=== PATIENT | male | born 1960 | race Caucasian/White ===

== ENCOUNTER 2020-02-01 21:11 | Emergency (ER) | payer BC ==
[2020-02-01] MEDS ORDERED: LORazepam 1 MG Tab PO ONE (21:55)
--- NOTE | 2020-02-01 21:57 | EDM.PDOC ---
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 Also admits he has been under a lot of stress as of late does have follow-up appointment with cardiology this week - Related Data Allergies Allergy/AdvReac Type Severity Reaction Status Date / Time No Known Allergies Allergy Verified 02/01/20 21:31 Home Meds: Home Meds Famotidine 40 mg PO DAILY 02/01/20 [History] Warfarin [Coumadin] 1 tab PO ASDIRECTED 02/01/20 [History] Warfarin [Coumadin] 10 mg PO ASDIRECTED 02/01/20 [History] atenoloL [Tenormin] 50 mg PO DAILY 02/01/20 [History] Past Medical History HEENT History: Reports: Allergic Rhinitis, Impaired Vision, Sinusitis Cardiovascular History: Reports: Arrhythmia, Heart Murmur, High Cholesterol, Hypertension Gastrointestinal History: Reports: GERD, Irritable Bowel Syndrome Genitourinary History: Reports: Prostate Disorder, Renal Calculus Psychiatric History: Reports: Anxiety, Panic Attack Hematologic History: Reports: Anticoagulation Therapy - Infectious Disease History Infectious Disease History: Reports: Chicken Pox, Shingles - Past Surgical History Cardiovascular Surgical History: Reports: Aneurysm, Valve Replacement Other Cardiovascular Surgeries/Procedures: aortic aneurysm Social & Family History - Tobacco Use Tobacco Use Status *Q: Never Tobacco User - Recreational Drug Use Recreational Drug Use: No ED ROS GENERAL - Review of Systems Review Of Systems: See Below Constitutional: Reports: No Symptoms HEENT: Reports: No Symptoms Respiratory: Reports: No Symptoms Cardiovascular: Reports: Palpitations GI/Abdominal: Reports: No Symptoms : Reports: No Symptoms ED EXAM, GENERAL - Physical Exam Exam: See Below Exam Limited By: No Limitations General Appearance: Alert, WD/WN, No Apparent Distress Respiratory/Chest: No Respiratory Distress, Lungs Clear, Normal Breath Sounds, No Accessory Muscle Use, Chest Non-Tender Cardiovascular: Regular Rate, Rhythm, Systolic Murmur (With mechanical click) Course - Vital Signs Last Recorded V/S: Last Vital Signs Temp 96.7 F L 02/01/20 21:36 Pulse 55 L 02/01/20 22:46 Resp 13 02/01/20 22:46 BP 173/79 H 02/01/20 22:46 Pulse Ox 100 02/01/20 22:46 - Orders/Labs/Meds Orders: Active Orders 24 hr Category Date Time Status Cardiac Monitoring [RC] .As Directed Care 02/01/20 21:54 Active EKG Documentation Completion [RC] ASDIRECTED Care 02/01/20 21:55 Active EKG 12 Lead [EK] Stat Ther 02/01/20 21:55 Ordered Labs: Laboratory Tests 02/01/20 02/01/20 02/01/20 Range/Units 21:54 22:09 22:09 WBC 10.0 (4.5-11.0) K/uL RBC 4.73 (4.30-5.90) M/uL Hgb 13.5 (12.0-15.0) g/dL Hct 42.4 (40.0-54.0) % MCV 90 (80-98) fL MCH 29 (27-31) pg MCHC 32 (32-36) % Plt Count 177 (150-400) K/uL Neut % (Auto) 80 H (36-66) % Lymph % (Auto) 9 L (24-44) % Spink % (Auto) 7 H (2-6) % Eos % (Auto) 4 (2-4) % Baso % (Auto) 0 (0-1) % PT 27.1 H (9.5-12.0) sec INR 2.53 H (0.80-1.20) Sodium 138 L (140-148) mmol/L Potassium 4.1 (3.6-5.2) mmol/L Chloride 103 (100-108) mmol/L Carbon Dioxide 27 (21-32) mmol/L Anion Gap 12.1 (5.0-14.0) mmol/L BUN 14 (7-18) mg/dL Creatinine 0.9 (0.8-1.3) mg/dL Est Cr Clr Drug Dosing 97.00 mL/min Estimated GFR (MDRD) > 60 (>60) Glucose 137 H (74-106) mg/dL Calcium 9.6 (8.5-10.1) mg/dL Troponin I < 0.017 (0.000-0.056) ng/mL Meds: Medications Discontinued Medications Generic Name Dose Route Start Last Admin Trade Name Alejandra PRN Reason Stop Dose Admin Lorazepam 1 mg 02/01/20 21:55 02/01/20 22:03 Ativan PO 02/01/20 21:56 1 mg ONETIME ONE Administration Departure - Departure Time of Disposition: 22:53 Disposition: Home, Self-Care 01 Condition: Fair Clinical Impression: Palpitations Instructions: Palpitations, [id number] Referrals: PCP,None [Primary Care Provider] - Forms: ED Department Discharge Additional Instructions: Use the Ativan as needed for symptomatic relief, keep your follow-up appointment with your primary care provider this week, call or return to the emergency department worsening of symptoms Sepsis Event Note (ED) - Evaluation Sepsis Screening Result: No Definite Risk - Focused Exam Vital Signs: Vital Signs Temp Pulse Resp BP Pulse Ox 02/01/20 22:46 55 L 13 173/79 H 100 02/01/20 22:04 56 L 10 L 188/76 H 99 02/01/20 21:36 96.7 F L 61 11 L 194/65 H 100 - My Orders Last 24 Hours: My Active Orders 02/01/20 21:54 Cardiac Monitoring [RC] .As Directed 02/01/20 21:55 EKG Documentation Completion [RC] ASDIRECTED EKG 12 Lead [EK] Stat - Assessment/Plan Last 24 Hours: My Active Orders 02/01/20 21:54 Cardiac Monitoring [RC] .As Directed 02/01/20 21:55 EKG Documentation Completion [RC] ASDIRECTED EKG 12 Lead [EK] Stat Plan: Assessment Acuity = acute Site and laterality = palpitations Etiology = unknown suspicious for underlying anxiety Manifestations = none Location of injury = Home Lab values = CBC, BMP, troponin all within normal limits EKG demonstrates sinus rhythm no ST elevations or depressions Plan . Some improvement with the Ativan provided in the emergency department prescription written for Ativan 1 mg p.o. 3 times daily as needed total #10 he has a follow-up appointment with his primary care provider on of this week This note was dictated using [employer] voice recognition software please call with any questions on syntax or grammar.
== END 2020-02-01 23:05 | disposition home or self-care (01) ==
LOC: JP.ED 21:11 → EDBD 21:11 → JP.ED 23:05
DX: R00.2 Palpitations (principal); I10 Essential (primary) hypertension; K21.9 Gastro-esophageal reflux disease without esophagitis; Z79.899 Other long term (current) drug therapy
CPT/HCPCS: 36415; 80048; 84484; 85025; 85610; 93005; 99285; A9270; 93010

== ENCOUNTER 2021-12-18 20:26 | Emergency (ER) | payer BC | END 2021-12-18 22:11 | disposition home or self-care (01) | LOC: JP.ED 20:26 | DX: K64.5 Perianal venous thrombosis (principal); I10 Essential (primary) hypertension; K21.9 Gastro-esophageal reflux disease without esophagitis; Z79.01 Long term (current) use of anticoagulants; Z79.899 Other long term (current) drug therapy | CPT/HCPCS: 36415; 85610; 99283 ==